=== PATIENT | female | born 1970 | race American Indian/Alaskan Native ===

== ENCOUNTER 2016-10-16 15:38 | Emergency (ER) | payer BC ==
[2016-10-16 17:20] LABS: Basophils % (Auto) 0.4 % (0.0-1.8); Eosinophils % (Auto) 0.5 % (0.0-4.3); Hematocrit 52.3 % (30.3-42.9); Hemoglobin 17.3 gm/dl (10.1-14.3); Mean Corpuscular HGB Conc 33 % (30-34); Mean Corpuscular Hemoglobin 33 pg (28-32); Mean Corpuscular Volume 100 fl (79-97); Platelet Count 156 K/mm3 (140-440); Red Blood Count 5.26 M/mm3 (3.65-5.03); Red Cell Distribution Width 14.1 % (13.2-15.2); White Blood Count 11.2 K/mm3 (4.5-11.0)
[2016-10-16 18:32] LABS: Bilirubin,Urine NEG (Negative); Blood,Urine NEG (Negative); Ketones,Urine NEG (Negative); Leukocyte Esterase,Urine NEG (Negative); Nitrite,Urine NEG (Negative); Protein,Urine <15 mg/dL mg/dL (Negative); Urobilinogen,Urine < 2.0 mg/dL (<2.0)
[2016-10-16 18:57] LABS: Anion Gap 19 mmol/L; BUN/Creatinine Ratio 21.42; Blood Urea Nitrogen 15 mg/dL (7-17); Calcium 8.9 mg/dL (8.4-10.2); Carbon Dioxide 23 mmol/L (22-30); Chloride 95.5 mmol/L (98-107); Glucose 393 mg/dL (65-100); Potassium 4.4 mmol/L (3.6-5.0); Sodium 133 mmol/L (137-145)
[2016-10-16] MEDS ORDERED: NACL 0.9% 1000 ML 1,000 ML IV ONE (20:06)
--- NOTE | 2016-10-16 20:12 | Emergency Department Report ---
HPI - General Chief Complaint: Hyperglycemia Time Seen by Provider: 10/16/16 19:59 - HPI HPI: Room 18 Patient is a 46-year-old female presenting with a chief complaint of hyperglycemia. The patient has a history of diabetes was diagnosed March 2016. Patient was initially started on metformin but she stopped taking the medication secondary to side effects. The patient states she has not been on medication since March 2016. The patient followed up with her primary physician 10/13/2016 and had labs drawn. The patient received a call yesterday from the physician. Patient states she called the emergency physician back today for that her blood sugar was elevated at 415 that she should come to the emergency department for treatment. Patient states she feels "fine" but does feel tired and has been thirsty and exhibiting polyuria. The patient states her primary physician did write a prescription for new oral hypoglycemic which has been filled but she has not began taking yet Location: Blood Sugar Duration: [see above] Quality: Hyperglycemia Severity: 450 Modifying factors: [see above] Context: [see above] Mode of transportation: Unknown ED Past Medical Hx - Past Medical History Hx Hypertension: Yes Hx Diabetes: Yes Hx GERD: Yes Hx Asthma: (pt mother) Additional medical history: diverticulitis. obesity - Surgical History Past Surgical History?: No - Family History Family history: no significant - Social History Smoking Status: Current Every Day Smoker Substance Use Type: Alcohol - Medications Home Medications: Home Medications Medication Instructions Recorded Confirmed Last Taken Type Atorvastatin Calcium [Lipitor] 20 mg PO QDAY 10/16/16 10/16/16 Unknown History Dapagliflozin/Metformin HCl 1 tab PO BID 10/16/16 10/16/16 Unknown History [Xigduo Xr 5 mg-1,000 mg Tablet] Lisinopril/Hydrochlorothiazide 1 tab PO BID 10/16/16 10/16/16 Unknown History [Zestoretic 20-12.5 mg] ED Review of Systems ROS: Stated complaint: HIGH BLOOD SUGAR Other details as noted in HPI Comment: All other systems reviewed and negative Constitutional: denies: chills, fever Eyes: denies: eye pain, eye discharge, vision change ENT: denies: ear pain, throat pain Respiratory: denies: cough, shortness of breath, wheezing Cardiovascular: denies: chest pain, palpitations Endocrine: increased thirst, increased urine Gastrointestinal: denies: abdominal pain, nausea, diarrhea Genitourinary: denies: urgency, dysuria, discharge Musculoskeletal: denies: back pain, joint swelling, arthralgia Skin: denies: rash, lesions Neurological: denies: headache, weakness, paresthesias Psychiatric: denies: anxiety, depression Hematological/Lymphatic: denies: easy bleeding, easy bruising Physical Exam - Physical Exam Vital Signs: Vital Signs 10/16/16 10/16/16 16:55 18:50 Temperature 98.7 F Pulse Rate 98 H 90 Respiratory 19 16 Rate Blood Pressure 142/96 Blood Pressure 158/90 [Left] O2 Sat by Pulse 96 96 Oximetry Physical Exam: GENERAL: The patient is well-developed well-nourished female lying on stretcher not appearing to be in acute distress. [] HEENT: Normocephalic. Atraumatic. Extraocular motions are intact. Patient has moist mucous membranes. NECK: Supple. Trachea midline CHEST/LUNGS: Clear to auscultation. There is no respiratory distress noted. HEART/CARDIOVASCULAR: Regular. There is no tachycardia. There is no gallop rub or murmur. ABDOMEN: Abdomen is soft, nontender. Patient has normal bowel sounds. There is no abdominal distention. SKIN: There is no rash. There is no edema. There is no diaphoresis. NEURO: The patient is awake, alert, and oriented. The patient is cooperative. The patient has normal speech MUSCULOSKELETAL: There is no evidence of acute injury. ED Course Vital Signs 10/16/16 10/16/16 16:55 18:50 Temperature 98.7 F Pulse Rate 98 H 90 Respiratory 19 16 Rate Blood Pressure 142/96 Blood Pressure 158/90 [Left] O2 Sat by Pulse 96 96 Oximetry - Reevaluation(s) Reevaluation #1: 10/16/16 22:10 Accu-Chek 289 ED Medical Decision Making - Lab Data Result diagrams: 10/16/16 17:05 10/16/16 17:05 Laboratory Tests 10/16/16 10/16/16 10/16/16 16:33 17:05 17:05 WBC 11.2 H RBC 5.26 H Hgb 17.3 H Hct 52.3 H MCV 100 H MCH 33 H MCHC 33 RDW 14.1 Plt Count 156 Lymph % (Auto) 26.3 [place] % (Auto) 4.0 Eos % (Auto) 0.5 Baso % (Auto) 0.4 Lymph # 2.9 [place] # 0.4 Eos # 0.1 Baso # 0.0 Seg Neutrophils % 68.8 Seg Neutrophils # 7.7 VBG pH Sodium 133 L Potassium 4.4 Chloride 95.5 L Carbon Dioxide 23 Anion Gap 19 BUN 15 Creatinine 0.7 Estimated GFR > 60 BUN/Creatinine Ratio 21.42 Glucose 393 H POC Glucose 370 H Calcium 8.9 Urine Color Urine Turbidity Urine pH Urine Protein Urine Glucose (UA) Urine Ketones Urine Blood Urine Nitrite Urine Bilirubin Urine Urobilinogen Ur Leukocyte Esterase Urine WBC (Auto) Urine RBC (Auto) U Epithel Cells (Auto) 10/16/16 10/16/16 10/16/16 17:05 18:08 18:31 WBC RBC Hgb Hct MCV MCH MCHC RDW Plt Count Lymph % (Auto) [place] % (Auto) Eos % (Auto) Baso % (Auto) Lymph # [place] # Eos # Baso # Seg Neutrophils % Seg Neutrophils # VBG pH 7.393 Sodium Potassium Chloride Carbon Dioxide Anion Gap BUN Creatinine Estimated GFR BUN/Creatinine Ratio Glucose POC Glucose 289 H Calcium Urine Color Yellow Urine Turbidity Clear Urine pH 6.0 Urine Protein <15 mg/dl Urine Glucose (UA) >=500 Urine Ketones Neg Urine Blood Neg Urine Nitrite Neg Urine Bilirubin Neg Urine Urobilinogen < 2.0 Ur Leukocyte Esterase Neg Urine WBC (Auto) 1.0 Urine RBC (Auto) 4.0 U Epithel Cells (Auto) 9.0 - Differential Diagnosis hyperglycemia, DKA, noncompliance Critical care attestation.: If time is entered above; I have spent that time in minutes in the direct care of this critically ill patient, excluding procedure time. ED Disposition Clinical Impression: Hyperglycemia Disposition: DISCHARGED TO HOME OR SELFCARE Is pt being admited?: No Does the pt Need Aspirin: No Condition: Stable Instructions: Diabetic Hyperglycemia (ED) Additional Instructions: Return to the emergency department immediately should you develop worsening symptoms, fever, inability to tolerate food or liquid or any other concerns. Referrals: PRIMARY CARE [Primary Care Provider] - 3-5 Days Time of Disposition: 22:10
[2016-10-16 22:08] VITALS: BP 138/86
== END 2016-10-16 22:26 | disposition home or self-care (01) ==
LOC: ED 15:38
DX: E11.65 Type 2 diabetes mellitus with hyperglycemia (principal); K21.9 Gastro-esophageal reflux disease without esophagitis; K57.92 Diverticulitis of intestine, part unspecified, without perforation or abscess without bleeding; E66.9 Obesity, unspecified; F17.200 Nicotine dependence, unspecified, uncomplicated; Z91.013 Allergy to seafood
CPT/HCPCS: 36415; 80048; 81001; 82805; 82962; 85025; 96361; 96374; 99284; J7030; J1815

== ENCOUNTER 2016-11-08 08:28 | Emergency (ER) | payer BC ==
[2016-11-08 08:43] VITALS: BP 155/104
[2016-11-08] MEDS ORDERED: TORADOL IV ONE (09:15)
[2016-11-08] MEDS ORDERED: MORPHINE IV ONE (09:15)
[2016-11-08] MEDS ORDERED: NACL 0.9% 1000 ML 1,000 ML IV ONE (09:15)
--- NOTE | 2016-11-08 09:16 | Emergency Department Report ---
ED Abdominal Pain HPI - General Chief Complaint: Abdominal Pain Stated Complaint: SEVERE LEFT SIDE PAIN Time Seen by Provider: 11/08/16 09:09 Source: patient Mode of arrival: Ambulatory Limitations: No Limitations - History of Present Illness MD Complaint: abdominal pain, flank pain -: Gradual, days(s) (3 days) Location: LLQ, L flank Radiation: LUQ, LLQ, L flank Severity scale (0 -10): 7 - Related Data Home Medications Medication Instructions Recorded Confirmed Last Taken Atorvastatin Calcium [Lipitor] 20 mg PO QDAY 10/16/16 10/16/16 Unknown Dapagliflozin/Metformin HCl 1 tab PO BID 10/16/16 10/16/16 Unknown [Xigduo Xr 5 mg-1,000 mg Tablet] Lisinopril/Hydrochlorothiazide 1 tab PO BID 10/16/16 10/16/16 Unknown [Zestoretic 20-12.5 mg] Previous Rx's Medication Instructions Recorded Last Taken Type Ibuprofen [Motrin] 800 mg PO Q8HR PRN #20 tablet 11/08/16 Unknown Rx methOCARBAMOL [Robaxin TAB] 500 mg PO Q6H PRN #20 tablet 11/08/16 Unknown Rx Allergies Allergy/AdvReac Type Severity Reaction Status Date / Time shellfish derived Allergy Swelling Verified 10/16/16 17:02 ED Review of Systems ROS: Stated complaint: SEVERE LEFT SIDE PAIN Other details as noted in HPI ED Past Medical Hx - Past Medical History Hx Hypertension: Yes Hx Diabetes: Yes Hx GERD: Yes Hx Asthma: (pt mother) Additional medical history: diverticulitis. obesity - Surgical History Past Surgical History?: No - Social History Smoking Status: Current Every Day Smoker - Medications Home Medications: Home Medications Medication Instructions Recorded Confirmed Last Taken Type Atorvastatin Calcium [Lipitor] 20 mg PO QDAY 10/16/16 10/16/16 Unknown History Dapagliflozin/Metformin HCl 1 tab PO BID 10/16/16 10/16/16 Unknown History [Xigduo Xr 5 mg-1,000 mg Tablet] Lisinopril/Hydrochlorothiazide 1 tab PO BID 10/16/16 10/16/16 Unknown History [Zestoretic 20-12.5 mg] Ibuprofen [Motrin] 800 mg PO Q8HR PRN #20 tablet 11/08/16 Unknown Rx methOCARBAMOL [Robaxin TAB] 500 mg PO Q6H PRN #20 tablet 11/08/16 Unknown Rx ED Physical Exam - General Limitations: No Limitations General appearance: alert, in no apparent distress - Head Head exam: Present: atraumatic, normocephalic - Eye Eye exam: Present: normal appearance, PERRL, EOMI - ENT ENT exam: Present: mucous membranes moist - Neck Neck exam: Present: normal inspection, full ROM. Absent: tenderness, meningismus, lymphadenopathy - Respiratory Respiratory exam: Present: normal lung sounds bilaterally. Absent: respiratory distress, wheezes, rales, rhonchi, stridor, chest wall tenderness, accessory muscle use, decreased breath sounds, prolonged expiratory - Cardiovascular Cardiovascular Exam: Present: regular rate. Absent: systolic murmur, diastolic murmur, rubs, gallop - GI/Abdominal GI/Abdominal exam: Present: soft, tenderness (mild left upper quadrant tenderness, palpable rib tenderness.), normal bowel sounds. Absent: distended, guarding, rebound, rigid, mass, bruit, pulsatile mass - Extremities Exam Extremities exam: Present: normal inspection - Back Exam Back exam: Present: normal inspection. Absent: CVA tenderness (L) - Neurological Exam Neurological exam: Present: alert, oriented X3 - Psychiatric Psychiatric exam: Present: normal affect, normal mood - Skin Skin exam: Present: warm, dry, intact, normal color. Absent: rash ED Course Vital Signs 11/08/16 11/08/16 08:37 08:45 Temperature 98.4 F 98.4 F Pulse Rate 104 H 104 H Respiratory 20 Rate Blood Pressure 155/104 Blood Pressure 155/104 [Right] O2 Sat by Pulse 98 98 Oximetry - Reevaluation(s) Reevaluation #1: 11/08/16 11:28 Patient resting comfortably in her room, normotensive normal cardiac. Discussed labs CT prescriptions plan with patient pointing out that this is likely musculoskeletal/rib pain it's my pain is reproducible on palpation. ED Medical Decision Making - Lab Data Result diagrams: 11/08/16 09:27 11/08/16 09:27 - Medical Decision Making labs and ct + no acute findings. pt pain is reproducable with movement and palpation of lower lt ribs c/w musculoskeletal pain . Critical care attestation.: If time is entered above; I have spent that time in minutes in the direct care of this critically ill patient, excluding procedure time. ED Disposition Clinical Impression: Rib pain on left side Disposition: DISCHARGED TO HOME OR SELFCARE Is pt being admited?: No Condition: Stable Instructions: Chest Pain (ED), Abdominal Pain (ED) Prescriptions: Ibuprofen [Motrin] 800 mg PO Q8HR PRN #20 tablet PRN Reason: Pain methOCARBAMOL [Robaxin TAB] 500 mg PO Q6H PRN #20 tablet PRN Reason: Pain Referrals: PRIMARY CAREMD [Primary Care Provider] - 3-5 Days HARMAN GUTIERRES MD [Staff Physician] - 3-5 Days
[2016-11-08] MEDS ORDERED: ZOFRAN IV ONE (09:41)
[2016-11-08 09:54] LABS: Basophils % (Auto) 0.4 % (0.0-1.8); Eosinophils % (Auto) 0.9 % (0.0-4.3); Hematocrit 45.9 % (30.3-42.9); Hemoglobin 15.3 gm/dl (10.1-14.3); Mean Corpuscular HGB Conc 33 % (30-34); Mean Corpuscular Hemoglobin 34 pg (28-32); Mean Corpuscular Volume 100 fl (79-97); Platelet Count 176 K/mm3 (140-440); Red Blood Count 4.57 M/mm3 (3.65-5.03); Red Cell Distribution Width 14.1 % (13.2-15.2); White Blood Count 6.4 K/mm3 (4.5-11.0)
[2016-11-08 10:10] LABS: Alanine Aminotransferase 32 units/L (7-56); Albumin 3.9 g/dL (3.9-5); Albumin/Globulin Ratio 1.7 %; Alkaline Phosphatase 91 units/L (35-129); Anion Gap 15 mmol/L; Blood Urea Nitrogen 9 mg/dL (7-17); Calcium 8.8 mg/dL (8.4-10.2); Carbon Dioxide 27 mmol/L (22-30); Chloride 102.7 mmol/L (98-107); Glucose 310 mg/dL (65-100); Lipase 137 units/L (13-60); Potassium 4.2 mmol/L (3.6-5.0); Sodium 140 mmol/L (137-145); Total Protein 6.2 g/dL (6.3-8.2)
[2016-11-08 10:19] LABS: Bilirubin,Urine NEG (Negative); Blood,Urine SM (Negative); Ketones,Urine NEG (Negative); Leukocyte Esterase,Urine NEG (Negative); Mucus,Urine FEW /HPF; Nitrite,Urine NEG (Negative); Protein,Urine <15 mg/dL mg/dL (Negative); Urobilinogen,Urine < 2.0 mg/dL (<2.0)
--- NOTE | 2016-11-08 11:20 | Cat Scan Report ---
CT OF THE ABDOMEN AND PELVIS WITHOUT CONTRAST HISTORY: Left flank pain. TECHNIQUE: Helical CT without contrast. Sagittal and coronal reformatted images. FINDINGS: A 2.8 cm left ovarian cyst is suspected. The uterus and right adnexa are unremarkable. Within the limits of a noncontrast exam, the remaining abdominal and pelvic viscera are within normal limits. The liver, biliary system, pancreas, spleen, kidneys, adrenal glands and bladder are unremarkable. The bowel loops are normal caliber and wall thickness. Normal appendix. There are scattered diverticula in the descending and sigmoid colon. No acute inflammatory changes. The aorta is normal caliber. No ascites, bulky adenopathy or inflammatory changes. The lung bases are clear. Normal heart size. No suspicious bony lesion. IMPRESSION: 2.8 cm left ovarian cyst.
[2016-11-14 11:21] LABS: ISTAT Base Excess TNR; ISTAT HCO3 TNR; ISTAT PCO2 TNR (35-45); ISTAT PH TNR (7.35-7.45); ISTAT PO2 TNR (80-105)
[2016-11-14 11:22] LABS: ISTAT SO2 TNR; ISTAT TCO2 TNR
== END 2016-11-08 11:40 | disposition home or self-care (01) ==
LOC: ED 08:28
DX: R07.81 Pleurodynia (principal); E11.9 Type 2 diabetes mellitus without complications; J45.909 Unspecified asthma, uncomplicated; I10 Essential (primary) hypertension; K57.92 Diverticulitis of intestine, part unspecified, without perforation or abscess without bleeding; F17.200 Nicotine dependence, unspecified, uncomplicated; Z91.013 Allergy to seafood
CPT/HCPCS: 36415; 74176; 80053; 81001; 81025; 83690; 85025; 96361; 96374; 96375; 99284; J1885; J2270; J2405; J7030

== ENCOUNTER 2017-03-09 09:04 | Outpatient (CLI) | payer BC ==
[2017-03-09 09:50] LABS: Anion Gap 13 mmol/L; Blood Urea Nitrogen 12 mg/dL (7-17); Calcium 9.3 mg/dL (8.4-10.2); Carbon Dioxide 29 mmol/L (22-30); Chloride 102.1 mmol/L (98-107); Glucose 171 mg/dL (65-100); Potassium 4.2 mmol/L (3.6-5.0); Sodium 140 mmol/L (137-145)
--- NOTE | 2017-03-09 13:40 | Cat Scan Report ---
CT scan of abdomen and pelvis with IV contrast: Compared to 01/10/17. History: Diverticulitis abscess. Findings: Normal lung bases. No pleural pericardial effusion. Normal liver spleen pancreas and gallbladder. Normal adrenals kidney parenchyma and urinary bladder. No free intraperitoneal fluid or air. No evidence of adenopathy. 4.4 cm cystic mass is identified the left adnexa probably an ovarian cyst. Diverticulosis sigmoid colon. Suspicion of mild diverticulitis. Normal appendix. Gaseous colon with stool in colon. No bowel distention. Impression: Mass left adnexa probably a complex ovarian cyst. Suspicion of mild stranding around the diverticula of the sigmoid probably suggestive of mild diverticulitis.
== END 2017-03-09 09:05 | disposition home or self-care (01) ==
LOC: CT 09:04
PROVIDERS: ATTEND Surgery
DX: K57.30 Diverticulosis of large intestine without perforation or abscess without bleeding (principal); N85.8 Other specified noninflammatory disorders of uterus
CPT/HCPCS: 36415; 74177; 80048; Q9967

== ENCOUNTER 2017-03-11 11:51 | Emergency (ER) | payer BC ==
[2017-03-11 14:01] LABS: Basophils % (Auto) 1.1 % (0.0-1.8); Eosinophils % (Auto) 0.6 % (0.0-4.3); Hematocrit 47.1 % (30.3-42.9); Hemoglobin 15.9 gm/dl (10.1-14.3); Mean Corpuscular HGB Conc 34 % (30-34); Mean Corpuscular Hemoglobin 33 pg (28-32); Mean Corpuscular Volume 97 fl (79-97); Platelet Count 244 K/mm3 (140-440); Red Blood Count 4.86 M/mm3 (3.65-5.03); Red Cell Distribution Width 13.6 % (13.2-15.2); White Blood Count 12.6 K/mm3 (4.5-11.0)
[2017-03-11] MEDS ORDERED: MORPHINE IV ONE (14:09)
[2017-03-11 14:20] LABS: Alanine Aminotransferase 18 units/L (7-56); Albumin 4.3 g/dL (3.9-5); Albumin/Globulin Ratio 1.1 %; Alkaline Phosphatase 94 units/L (35-129); Anion Gap 21 mmol/L; BUN/Creatinine Ratio 15; Blood Urea Nitrogen 9 mg/dL (7-17); Calcium 9.3 mg/dL (8.4-10.2); Carbon Dioxide 22 mmol/L (22-30); Chloride 96.8 mmol/L (98-107); Glucose 164 mg/dL (65-100); Lipase 15 units/L (13-60); Potassium 4.4 mmol/L (3.6-5.0); Sodium 135 mmol/L (137-145); Total Protein 8.3 g/dL (6.3-8.2)
[2017-03-11] MEDS ORDERED: ZOFRAN ONE (14:22)
[2017-03-11 14:23] LABS: Bilirubin,Urine NEG (Negative); Blood,Urine SM (Negative); Ketones,Urine 80 mg/dL (Negative); Leukocyte Esterase,Urine NEG (Negative); Mucus,Urine FEW /HPF; Nitrite,Urine NEG (Negative); RBC,Urine < 1.0 /HPF (0.0-6.0); Urobilinogen,Urine < 2.0 mg/dL (<2.0)
[2017-03-11] MEDS ORDERED: ZOFRAN IV ONE (14:27)
[2017-03-11] MEDS ORDERED: NACL ONE (15:10)
[2017-03-11] MEDS ORDERED: NORCO 10/325 PO ONE (15:36)
--- NOTE | 2017-03-11 15:37 | Emergency Department Report ---
ED General Adult HPI - General Chief complaint: Abdominal Pain Stated complaint: ABDOMINAL PAIN , NAUSEA AND VOMITING Time Seen by Provider: 03/11/17 13:31 Source: patient Mode of arrival: Ambulatory Limitations: No Limitations - History of Present Illness Initial comments: Patient is a 46-year-old female past medical history of diabetes who presents with lower abdominal pain. She states lower abdominal pain has been going on since Thursday. She states the lower abdominal pain is a 6 out of 10 at its located in the suprapubic area. She states that vomiting and diarrhea make it worse and nothing makes it better. Patient states that she is out of her pain medication and she came here because she had exacerbation of her pain. Her pain doesn't radiate anywhere it is a colicky pressure pain that is constant. Patient's onset was gradual patient was seen here in the ER on Thursday and given a CT scan and being treated for her colitis. He should vomit is nonbloody nonbilious. Severity scale (0 -10): 0 - Related Data Home Medications Medication Instructions Recorded Confirmed Last Taken Dapagliflozin/Metformin HCl 1 tab PO BID 10/16/16 01/10/17 01/10/17 [Xigduo Xr 5 mg-1,000 mg Tablet] Lisinopril/Hydrochlorothiazide 1 tab PO BID 10/16/16 01/10/17 01/10/17 [Zestoretic 20-12.5 mg] Previous Rx's Medication Instructions Recorded Last Taken Type Levofloxacin [Levaquin TAB] 750 mg PO Q24HR #10 tablet 01/14/17 Unknown Rx Nicotine [Habitrol] 14 mg TD DAILY #30 patch 01/14/17 Unknown Rx metroNIDAZOLE [Flagyl TAB] 500 mg PO Q8HR #30 tablet 01/14/17 Unknown Rx oxyCODONE /ACETAMINOPHEN [Percocet 1 tab PO TID PRN #15 tablet 01/14/17 Unknown Rx 5/325 mg] HYDROcodone/APAP 7.5-325 [[place] 1 each PO Q8HR PRN #13 tablet 03/11/17 Unknown Rx 7.5/325] Allergies Allergy/AdvReac Type Severity Reaction Status Date / Time shellfish derived Allergy Swelling Verified 03/11/17 13:16 ED Review of Systems ROS: Stated complaint: ABDOMINAL PAIN , NAUSEA AND VOMITING Other details as noted in HPI Constitutional: denies: chills, fever Eyes: denies: eye pain, eye discharge, vision change ENT: denies: ear pain, throat pain Respiratory: denies: cough, shortness of breath, wheezing Cardiovascular: denies: chest pain, palpitations Endocrine: no symptoms reported Gastrointestinal: abdominal pain, nausea, vomiting. denies: diarrhea Genitourinary: denies: urgency, dysuria, discharge Musculoskeletal: denies: back pain, joint swelling, arthralgia Skin: denies: rash, lesions Neurological: denies: headache, weakness, paresthesias Psychiatric: denies: anxiety, depression Hematological/Lymphatic: denies: easy bleeding, easy bruising ED Past Medical Hx - Past Medical History Hx Hypertension: Yes Hx Diabetes: Yes Hx GERD: Yes Hx Asthma: (pt mother) Additional medical history: diverticulitis. obesity - Social History Smoking Status: Current Every Day Smoker Substance Use Type: None - Medications Home Medications: Home Medications Medication Instructions Recorded Confirmed Last Taken Type Dapagliflozin/Metformin HCl 1 tab PO BID 10/16/16 01/10/17 01/10/17 History [Xigduo Xr 5 mg-1,000 mg Tablet] Lisinopril/Hydrochlorothiazide 1 tab PO BID 10/16/16 01/10/17 01/10/17 History [Zestoretic 20-12.5 mg] Levofloxacin [Levaquin TAB] 750 mg PO Q24HR #10 tablet 01/14/17 Unknown Rx Nicotine [Habitrol] 14 mg TD DAILY #30 patch 01/14/17 Unknown Rx metroNIDAZOLE [Flagyl TAB] 500 mg PO Q8HR #30 tablet 01/14/17 Unknown Rx oxyCODONE /ACETAMINOPHEN [Percocet 1 tab PO TID PRN #15 tablet 01/14/17 Unknown Rx 5/325 mg] HYDROcodone/APAP 7.5-325 [[place] 1 each PO Q8HR PRN #13 tablet 03/11/17 Unknown Rx 7.5/325] ED Physical Exam - General Limitations: No Limitations General appearance: alert, in no apparent distress - Head Head exam: Present: atraumatic, normocephalic - Eye Eye exam: Present: normal appearance - ENT ENT exam: Present: mucous membranes moist - Neck Neck exam: Present: normal inspection - Respiratory Respiratory exam: Present: normal lung sounds bilaterally. Absent: respiratory distress - Cardiovascular Cardiovascular Exam: Present: regular rate, normal rhythm. Absent: systolic murmur, diastolic murmur, rubs, gallop - GI/Abdominal GI/Abdominal exam: Present: soft, tenderness, normal bowel sounds - Extremities Exam Extremities exam: Present: normal inspection - Back Exam Back exam: Present: normal inspection - Neurological Exam Neurological exam: Present: alert, oriented X3 - Psychiatric Psychiatric exam: Present: normal affect, normal mood - Skin Skin exam: Present: warm, dry, intact, normal color. Absent: rash ED Course Vital Signs 03/11/17 03/11/17 13:16 13:58 Temperature 100 F H Pulse Rate 124 H 98 H Respiratory 24 18 Rate Blood Pressure 246/154 Blood Pressure 157/80 [Right] O2 Sat by Pulse 98 99 Oximetry ED Medical Decision Making - Lab Data Result diagrams: 03/11/17 13:34 03/11/17 13:34 Lab Results 03/11/17 03/11/17 03/11/17 Range/Units 13:26 13:34 13:34 WBC 12.6 H (4.5-11.0) K/mm3 RBC 4.86 (3.65-5.03) M/mm3 Hgb 15.9 H (10.1-14.3) gm/dl Hct 47.1 H (30.3-42.9) % MCV 97 (79-97) fl MCH 33 H (28-32) pg MCHC 34 (30-34) % RDW 13.6 (13.2-15.2) % Plt Count 244 (140-440) K/mm3 Lymph % (Auto) 14.5 (13.4-35.0) % [place] % (Auto) 4.2 (0.0-7.3) % Eos % (Auto) 0.6 (0.0-4.3) % Baso % (Auto) 1.1 (0.0-1.8) % Lymph # 1.8 (1.2-5.4) K/mm3 [place] # 0.5 (0.0-0.8) K/mm3 Eos # 0.1 (0.0-0.4) K/mm3 Baso # 0.1 (0.0-0.1) K/mm3 Seg Neutrophils % 79.6 H (40.0-70.0) % Seg Neutrophils # 10.0 H (1.8-7.7) K/mm3 Sodium 135 L (137-145) mmol/L Potassium 4.4 (3.6-5.0) mmol/L Chloride 96.8 L (98-107) mmol/L Carbon Dioxide 22 D (22-30) mmol/L Anion Gap 21 mmol/L BUN 9 (7-17) mg/dL Creatinine 0.6 L (0.7-1.2) mg/dL Estimated GFR > 60 ml/min BUN/Creatinine Ratio 15 % Glucose 164 H (65-100) mg/dL Lactic Acid (0.7-2.0) mmol/L Calcium 9.3 (8.4-10.2) mg/dL Total Bilirubin 0.60 (0.1-1.2) mg/dL AST 15 (5-40) units/L ALT 18 (7-56) units/L Alkaline Phosphatase 94 (35-129) units/L Total Protein 8.3 H (6.3-8.2) g/dL Albumin 4.3 (3.9-5) g/dL Albumin/Globulin Ratio 1.1 % Lipase 15 (13-60) units/L HCG, Qual (Negative) Urine Color Yellow (Yellow) Urine Turbidity Clear (Clear) Urine pH 6.0 (5.0-7.0) Ur Specific [place] 1.035 H (1.003-1.030) Urine Protein 100 mg/dl (Negative) mg/dL Urine Glucose (UA) >=500 (Negative) mg/dL Urine Ketones 80 (Negative) mg/dL Urine Blood Sm (Negative) Urine Nitrite Neg (Negative) Urine Bilirubin Neg (Negative) Urine Urobilinogen < 2.0 (<2.0) mg/dL Ur Leukocyte Esterase Neg (Negative) Urine WBC (Auto) 1.0 (0.0-6.0) /HPF Urine RBC (Auto) < 1.0 (0.0-6.0) /HPF U Epithel Cells (Auto) 9.0 (0-13.0) /HPF Urine Mucus Few /HPF 03/11/17 03/11/17 Range/Units 13:34 13:34 WBC (4.5-11.0) K/mm3 RBC (3.65-5.03) M/mm3 Hgb (10.1-14.3) gm/dl Hct (30.3-42.9) % MCV (79-97) fl MCH (28-32) pg MCHC (30-34) % RDW (13.2-15.2) % Plt Count (140-440) K/mm3 Lymph % (Auto) (13.4-35.0) % [place] % (Auto) (0.0-7.3) % Eos % (Auto) (0.0-4.3) % Baso % (Auto) (0.0-1.8) % Lymph # (1.2-5.4) K/mm3 [place] # (0.0-0.8) K/mm3 Eos # (0.0-0.4) K/mm3 Baso # (0.0-0.1) K/mm3 Seg Neutrophils % (40.0-70.0) % Seg Neutrophils # (1.8-7.7) K/mm3 Sodium (137-145) mmol/L Potassium (3.6-5.0) mmol/L Chloride (98-107) mmol/L Carbon Dioxide (22-30) mmol/L Anion Gap mmol/L BUN (7-17) mg/dL Creatinine (0.7-1.2) mg/dL Estimated GFR ml/min BUN/Creatinine Ratio % Glucose (65-100) mg/dL Lactic Acid 1.50 (0.7-2.0) mmol/L Calcium (8.4-10.2) mg/dL Total Bilirubin (0.1-1.2) mg/dL AST (5-40) units/L ALT (7-56) units/L Alkaline Phosphatase (35-129) units/L Total Protein (6.3-8.2) g/dL Albumin (3.9-5) g/dL Albumin/Globulin Ratio % Lipase (13-60) units/L HCG, Qual Negative (Negative) Urine Color (Yellow) Urine Turbidity (Clear) Urine pH (5.0-7.0) Ur Specific [place] (1.003-1.030) Urine Protein (Negative) mg/dL Urine Glucose (UA) (Negative) mg/dL Urine Ketones (Negative) mg/dL Urine Blood (Negative) Urine Nitrite (Negative) Urine Bilirubin (Negative) Urine Urobilinogen (<2.0) mg/dL Ur Leukocyte Esterase (Negative) Urine WBC (Auto) (0.0-6.0) /HPF Urine RBC (Auto) (0.0-6.0) /HPF U Epithel Cells (Auto) (0-13.0) /HPF Urine Mucus /HPF - Medical Decision Making Medical diagnosis: Colitis Differential diagnosis: UTI, DKA I will get CBC, CMP, urinalysis, IV pain medication, IV fluids, IV antiemetics Patient's pain is better after IV pain medication and oral pain medication. Discussed plan to follow up with patient's primary care doctor and the importance to continue taking her antibiotics. Patient agrees with plan and additional verbal discharge instructions were given. Laboratory findings are unremarkable. Critical care attestation.: If time is entered above; I have spent that time in minutes in the direct care of this critically ill patient, excluding procedure time. ED Disposition Clinical Impression: Lower abdominal pain Diverticulitis Qualifiers: Diverticulitis site: small intestine Diverticulitis bleeding: without bleeding Diverticulitis complication: unspecified complication status Qualified Code(s): K57.12 - Diverticulitis of small intestine without perforation or abscess without bleeding Nausea & vomiting Qualifiers: Vomiting type: unspecified Vomiting Intractability: non-intractable Qualified Code(s): R11.2 - Nausea with vomiting, unspecified Diabetes mellitus Qualifiers: Diabetes mellitus type: type 2 Diabetes mellitus complication status: without complication Diabetes mellitus fpc insulin use: without fpc use Qualified Code(s): E11.9 - Type 2 diabetes mellitus without complications Disposition: DC-01 TO HOME OR SELFCARE Is pt being admited?: No Does the pt Need Aspirin: No Condition: Stable Instructions: Abdominal Pain (ED), Diabetes Mellitus Type 2 in Adults (ED) Prescriptions: HYDROcodone/APAP 7.5-325 [[place] 7.5/325] 1 each PO Q8HR PRN #13 tablet PRN Reason: Pain Referrals: SUAD GOMEZ MD [Staff Physician] - 3-5 Days
[2017-03-11 18:28] VITALS: BP 144/75
== END 2017-03-11 19:06 | disposition home or self-care (01) ==
LOC: ED 11:51
DX: K57.12 Diverticulitis of small intestine without perforation or abscess without bleeding (principal); E11.9 Type 2 diabetes mellitus without complications; R11.2 Nausea with vomiting, unspecified; R10.30 Lower abdominal pain, unspecified
CPT/HCPCS: 36415; 80053; 81001; 82140; 83690; 84703; 85025; 96374; 96375; 99283; J2270; J2405